=== PATIENT | female | born 1985 | race Caucasian/White ===

== ENCOUNTER 2018-09-29 18:24 | Emergency (ER) | payer OTHER ==
[2018-09-29] MEDS: ACETAMINOPHEN 500 MG TAB PO (20:48)
== END 2018-09-29 23:50 | disposition home or self-care (01) ==
LOC: E/R 23:50
DX: R05 Cough (principal); R50.9 Fever, unspecified
CPT/HCPCS: 71045; 81025; 87400; 93005; 99284-25